=== PATIENT | male | born 1970 ===

== ENCOUNTER 2018-01-10 12:09 | Emergency (ER) | payer OTHER ==
[2018-01-10 12:09] VITALS: BMI 28.0
[2018-01-10 12:22] VITALS: BP 156/96; PULSE 66; RESP 18; TEMP 98; O2SAT 99
--- NOTE | 2018-01-10 12:37 | ED PDOC ---
Upper Extremity Pain/Injury Time Seen by Provider: 01/10/18 12:23 Chief Complaint (Nursing): Upper Extremity Problem/Injury Chief Complaint (Provider): Right shoulder pain History Per: Patient History/Exam Limitations: no limitations Current Symptoms Are (Timing): Still Present Additional Complaint(s): 47 year old right hand dominant male presents to the ED complaining of right shoulder and elbow pain, onset 5 hours ago. 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 Patient took Tylenol prior to arrival but this did not help the pain. He denies numbness or tingling to the affected extremity. No head injury or LOC sustained. PMD: Patient cant remember name Past Medical History Reviewed: Historical Data, Nursing Documentation, Vital Signs Vital Signs: Last Vital Signs Temp 98.0 F 01/10/18 12:20 Pulse 66 01/10/18 12:20 Resp 18 01/10/18 12:20 BP 156/96 H 01/10/18 12:20 Pulse Ox 99 01/10/18 12:20 - Medical History PMH: Asthma, HTN, Hypercholesterolemia - Surgical History Surgical History: Appendectomy - Family History Family History: States: Hypertension (Mother) - Living Arrangements Living Arrangements: With Family - Social History Current smoker - smoking cessation education provided: No Alcohol: Social Drugs: Denies - Home Medications Home Medications: Ambulatory Orders Medication Instructions Recorded Atorvastatin [Lipitor] 40 mg PO DAILY #30 tab 08/21/14 Enalapril Maleate [Vasotec] 20 mg PO BID #30 tab 08/21/14 Metoprolol Tartrate [Lopressor] 25 mg PO Q12 #30 tab 08/21/14 Dicyclomine [Bentyl] 20 mg PO Q12 PRN #20 tab 02/25/16 Albuterol Sulfate [Proair 1 puff INH Q4 PRN 08/12/16 Respiclick] Atorvastatin Calcium 20 mg PO HS 08/12/16 Enalapril Maleate [Vasotec] 10 mg PO BID 08/12/16 Fluticasone Nasal [Flonase] 2 spray DNIO DAILY 08/12/16 Ketotifen Fumarate [Zaditor] 2 drop OU DAILY 08/12/16 Promethazine DM [Phenergan DM 5 ml PO Q6 PRN 08/12/16 Syrup] amLODIPine [Norvasc] 5 mg PO DAILY 08/12/16 predniSONE [predniSONE Tab] 20 mg PO DAILY 08/12/16 Albuterol Sulfate [Proair Hfa] 200 puff IH DAILY #30 inh 08/14/16 Budesonide/Formoterol Fumarate 6 gm IH Q12 #30 hfa.aer.ad 08/14/16 [Symbicort 160-4.5 Mcg Inhaler] Levocetirizine Dihydrochloride 5 mg PO DAILY #30 tablet 08/14/16 [Xyzal] Pantoprazole [Protonix] 40 mg PO DAILY #30 ect 08/14/16 Prednisone 5 mg PO DAILY #30 tab.ds.pk 08/14/16 Promethazine/Codeine 10 ml PO Q4 #30 udc 08/14/16 [Codeine/Promethazine 10 MG/5 Ml-6.25 MG/5 Ml] Triamcinolone Acetonide [Nasacort] 10.8 ml NS DAILY #0 spray 08/14/16 Naproxen 500 mg PO BID #20 tab 12/11/16 oxyCODONE/Acetaminophen [Percocet 1 ea PO Q6 PRN #12 tab 12/11/16 5/325 mg Tab] Naproxen [Naprosyn] 500 mg PO Q12H #20 tab 01/02/17 Penicillin VK [Pen-Vee K] 500 mg PO QID #40 tab 01/02/17 Cyclobenzaprine [Cyclobenzaprine 10 mg PO TID PRN #20 tab 01/10/18 HCl] Naproxen [Naprosyn] 500 mg PO BID #20 tab 01/10/18 - Allergies Allergies/Adverse Reactions: Allergies Allergy/AdvReac Type Severity Reaction Status Date / Time No Known Allergies Allergy Verified 01/02/17 11:46 Review of Systems ROS Statement: Except As Marked, All Systems Reviewed And Found Negative Musculoskeletal: Positive for: Other (right upper extremity injury) Physical Exam - Reviewed Nursing Documentation Reviewed: Yes Vital Signs Reviewed: Yes - Physical Exam Appears: Positive for: Well, Non-toxic, No Acute Distress Head Exam: Positive for: ATRAUMATIC Skin: Positive for: Normal Color, Warm. 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 He states he feels better after medication administered. Prescriptions given for Naprosyn and Flexeril. Sling applied to the affected extremity. Patient was referred to orthopedist conservation science teacher. Scribe Attestation: Documented by Marion Nolan, acting as a scribe for Evi Rudd PA-C Provider Scribe Attestation: All medical record entries made by the Scribe were at my direction and personally dictated by me. I have reviewed the chart and agree that the record accurately reflects my personal performance of the history, physical exam, medical decision making, and the department course for this patient. I have also personally directed, reviewed, and agree with the discharge instructions and disposition. Procedures - Splinting Location: right arm Pre-Made Type: sling Pre-Proc Neuro Vasc Exam: normal Post-Proc Neuro Vasc Exam: normal Disposition - Clinical Impression Clinical Impression: Shoulder sprain - Patient ED Disposition Is Patient to be Admitted: No Counseled Patient/Family Regarding: Studies Performed, Diagnosis, Need For Followup, Rx Given - Disposition Referrals: Simba Salinas III, MD [Staff Provider] - Disposition: Routine/Home Disposition Time: 13:43 Condition: STABLE Additional Instructions: Ice and rest the affected area. Take prescription meds as directed as needed for pain. Follow-up with orthopedist or primary doctor for any persistent symptoms. Prescriptions: Cyclobenzaprine [Cyclobenzaprine HCl] 10 mg PO TID PRN #20 tab PRN Reason: Muscle Spasm Naproxen [Naprosyn] 500 mg PO BID #20 tab Instructions: Shoulder Sprain (DC) Forms: [facility] (Spanish), [facility] ED School/Work Excuse
--- NOTE | 2018-01-10 17:36 | RAD ---
PROCEDURE: Radiographs of the right humerus. HISTORY: trauma COMPARISON: None. FINDINGS: BONES: No acute fracture or destructive bony lesion identified. SOFT TISSUES: Normal. OTHER FINDINGS: None. IMPRESSION: Unremarkable radiographs of right humerus.
--- NOTE | 2018-01-10 17:36 | RAD ---
PROCEDURE: Radiographs of the right elbow. HISTORY: trauma COMPARISON: No prior. FINDINGS: BONES: No acute fracture or destructive bony lesion identified. JOINTS: No subluxation or dislocation. No osteoarthritis. SOFT TISSUES: Normal. JOINT EFFUSION: None. OTHER FINDINGS: None. IMPRESSION: Unremarkable radiographs of the right elbow.
--- NOTE | 2018-01-10 17:38 | RAD ---
PROCEDURE: Radiographs of the Right Shoulder HISTORY: trauma COMPARISON: No prior. FINDINGS: BONES: No acute fracture or destructive bony lesion identified. JOINTS: Limited degenerative changes seen at the right acromioclavicular joint. Glenohumeral joint appears unremarkable. SOFT TISSUES: Normal. OTHER FINDINGS: None. IMPRESSION: No acute fracture or dislocation identified. degenerative changes in the right acromioclavicular joint.
== END 2018-01-10 14:00 | disposition home or self-care (01) ==
LOC: H.ER 12:09
DX: S43.401A Unspecified sprain of right shoulder joint, initial encounter (principal); S59.901A Unspecified injury of right elbow, initial encounter; W22.8XXA Striking against or struck by other objects, initial encounter; Y99.0 Civilian activity done for income or pay; E78.00 Pure hypercholesterolemia, unspecified; I10 Essential (primary) hypertension; J45.909 Unspecified asthma, uncomplicated
CPT/HCPCS: 73030; 73060; 73080; 96372; 99283; J1885

== ENCOUNTER 2018-04-24 02:13 | Emergency (ER) | payer SELFPAY ==
[2018-04-24 02:13] VITALS: BMI 28.0
[2018-04-24 02:27] VITALS: RESP 18; TEMP 98; O2SAT 100
--- NOTE | 2018-04-24 02:37 | ED PDOC ---
HPI: General Adult Time Seen by Provider: 04/24/18 02:26 Chief Complaint (Nursing): Medical Clearance Chief Complaint (Provider): clearance History Per: Patient Severity: Mild Pain Scale Rating Of: 3 Additional Complaint(s): 47 y/o male history of hypertension here in police custody for clearance for incarceration. Patient admits to drinking tonight, states he has a "mild" headache currently. Denies head injury, LOC, dizziness, nausea/vomiting, vision changes, extremity numbness/weakness, chest pain, shortness of breath, palpitations, suicidal/homicidal ideations. Compliant with BP meds. Past Medical History Reviewed: Historical Data, Nursing Documentation, Vital Signs Vital Signs: Last Vital Signs Temp 98.0 F 04/24/18 02:23 Pulse 79 04/24/18 02:35 Resp 18 04/24/18 02:23 BP 146/105 H 04/24/18 02:35 Pulse Ox 100 04/24/18 03:22 - Medical History PMH: Asthma, HTN, Hypercholesterolemia Denies: Atrial Fibrillation, Cardia Arrhythmia, CHF, HIV, Mitral Valve Prolapse, Peripheral Edema, Chronic Kidney Disease - Surgical History Surgical History: Appendectomy Denies: Pacemaker - Family History Family History: States: Unknown Family Hx, Hypertension (Mother) - Home Medications Home Medications: Ambulatory Orders Medication Instructions Recorded Atorvastatin [Lipitor] 40 mg PO DAILY #30 tab 08/21/14 Enalapril Maleate [Vasotec] 20 mg PO BID #30 tab 08/21/14 Metoprolol Tartrate [Lopressor] 25 mg PO Q12 #30 tab 08/21/14 Dicyclomine [Bentyl] 20 mg PO Q12 PRN #20 tab 02/25/16 Albuterol Sulfate [Proair 1 puff INH Q4 PRN 08/12/16 Respiclick] Atorvastatin Calcium 20 mg PO HS 08/12/16 Enalapril Maleate [Vasotec] 10 mg PO BID 08/12/16 Fluticasone Nasal [Flonase] 2 spray DINO DAILY 08/12/16 Ketotifen Fumarate [Zaditor] 2 drop OU DAILY 08/12/16 Promethazine DM [Phenergan DM 5 ml PO Q6 PRN 08/12/16 Syrup] amLODIPine [Norvasc] 5 mg PO DAILY 09/26/16 predniSONE [predniSONE Tab] 20 mg PO DAILY 08/12/16 Albuterol Sulfate [Proair Hfa] 200 puff IH DAILY #30 inh 08/14/16 Budesonide/Formoterol Fumarate 6 gm IH Q12 #30 hfa.aer.ad 08/14/16 [Symbicort 160-4.5 Mcg Inhaler] Levocetirizine Dihydrochloride 5 mg PO DAILY #30 tablet 08/14/16 [Xyzal] Pantoprazole [Protonix] 40 mg PO DAILY #30 ect 08/14/16 Prednisone 5 mg PO DAILY #30 tab.ds.pk 08/14/16 Promethazine/Codeine 10 ml PO Q4 #30 udc 08/14/16 [Codeine/Promethazine 10 MG/5 Ml-6.25 MG/5 Ml] Triamcinolone Acetonide [Nasacort] 10.8 ml NS DAILY #0 spray 08/14/16 Naproxen 500 mg PO BID #20 tab 12/11/16 oxyCODONE/Acetaminophen [Percocet 1 ea PO Q6 PRN #12 tab 12/11/16 5/325 mg Tab] Naproxen [Naprosyn] 500 mg PO Q12H #20 tab 01/02/17 Penicillin VK [Pen-Vee K] 500 mg PO QID #40 tab 01/02/17 Cyclobenzaprine [Cyclobenzaprine 10 mg PO TID PRN #20 tab 01/10/18 HCl] Naproxen [Naprosyn] 500 mg PO BID #20 tab 01/10/18 - Allergies Allergies/Adverse Reactions: Allergies Allergy/AdvReac Type Severity Reaction Status Date / Time No Known Allergies Allergy Verified 01/02/17 11:46 Review of Systems ROS Statement: Except As Marked, All Systems Reviewed And Found Negative Neurological: Positive for: Headache Physical Exam - Reviewed Nursing Documentation Reviewed: Yes Vital Signs Reviewed: Yes - Physical Exam Appears: Positive for: Well, Non-toxic, No Acute Distress Head Exam: Positive for: ATRAUMATIC, NORMAL INSPECTION, NORMOCEPHALIC Skin: Positive for: Normal Color Eye Exam: Positive for: Normal appearance ENT: Positive for: Normal ENT Inspection Cardiovascular/Chest: Positive for: Regular Rate, Rhythm Respiratory: Positive for: Normal Breath Sounds Gastrointestinal/Abdominal: Positive for: Normal Exam Back: Positive for: Normal Inspection Extremity: Positive for: Normal ROM Neurologic/Psych: Positive for: Alert, cement gun operator II-XII, Oriented (x3), Motor/Sensory Deficits - ECG O2 Sat by Pulse Oximetry: 100 - Progress ED Course And Treament: Patient declines medication for headache at this time Patient evaluated by tea plantation worker and cleared for discharge as per Dr. Bass Patient resting comfortably. BP 149/99 Stable for discharge Disposition - Clinical Impression Clinical Impression: Headache, Hypertension, Adjustment disorder - Patient ED Disposition Is Patient to be Admitted: No Counseled Patient/Family Regarding: Diagnosis, Need For Followup - Disposition Disposition: Discharged/Transfer to Law Enforcement Disposition Time: 03:22 Condition: STABLE Additional Instructions: Patient medically and psychiatrically cleared for incarceration Instructions: High Blood Pressure in Adults, Adjustment Disorder, Headache, Adult, General (DC) Forms: [employer] (Togolese)
[2018-04-24 03:26] VITALS: BP 149/99; PULSE 84
== END 2018-04-24 03:25 ==
LOC: H.ER 02:13
DX: R51 Headache (principal); I10 Essential (primary) hypertension; F43.20 Adjustment disorder, unspecified; E78.00 Pure hypercholesterolemia, unspecified; J45.909 Unspecified asthma, uncomplicated